=== PATIENT | male | born 1990 | race Caucasian/White ===

== ENCOUNTER 2018-11-14 21:31 | Emergency (ER) | payer OTHER ==
[~2018-11-14] VITALS: Ht 180.3 cm; Wt 5.9 kg
--- NOTE | 2018-11-14 21:45 | NUR ---
BIBF C/O FEELING MIS STERNAL CP RADIATING TO JAW, TINGLING FINGER, FEELING SOB, AOX4, AMBULATORY, VSS, PLACED ON ER BED 1, AWAITING TO BE EVAL BY ER MD.
[2018-11-14] MEDS ORDERED: MAG HYDROX/AL HYDROX/SIMETH 30 ML UDC PO ONE (22:30)
[2018-11-14] MEDS ORDERED: DICYCLOMINE HCL INJ 20 MG/2 ML AMPUL IM ONE ×2 (22:30→22:31)
[2018-11-14] MEDS ORDERED: LIDOCAINE VISCOUS 2% UD 15 ML UDC MM ONE (22:30)
[2018-11-14] MEDS ORDERED: MAG HYDROX/AL HYDROX/SIMETH 30 ML UDC ONE (22:31)
[2018-11-14] MEDS ORDERED: LIDOCAINE VISCOUS 2% UD 15 ML UDC ONE (22:31)
[2018-11-14 23:02] VITALS: BP 142/90
== END 2018-11-14 23:07 | disposition home or self-care (01) ==
LOC: ER 21:38
DX: K21.9 Gastro-esophageal reflux disease without esophagitis (principal); K58.9 Irritable bowel syndrome, unspecified
CPT/HCPCS: 93005; 96372; 99283; J0500